=== PATIENT | female | born 1935 | race Caucasian/White ===

== ENCOUNTER 2022-12-20 19:26 | Emergency (ER) | payer MEDICARE, OTHER ==
[~2022-12-20] VITALS: Ht 167.6 cm; Wt 106.6 kg
[~2022-12-20 19:26] MED LIST: B-COMPLEX WIT400 MCG PO; CLARITIN10 M2 PO; FISH OIL 1,0001 EAC3 PO; FLONASE ALLERG9.9 ML NAS; GLUCOPHAGE500 MG PO; LOSARTAN POTAS100 MG PO; NORVASC10 MG PO; POTASSIUM99 MG PO; PREDNISONE10 MG PO; VITAMIN B122500 MC1 PO; VITAMIN D-32000 UNIT PO; ZINC50 M2 PO
--- OUTSIDE RECORDS SUMMARY | 2022-12-20 19:34 | XMS ---
PreManage Notification: INNA MADDOX Security Referral Nurse Events No recent Security Events currently on file CRITERIA MET - [facility] - 2 Visits in 30 Days [facility] PROVID[facility] PHONE: Unknown Magal[facility] has no Care Guidelines for this patient. EJessica VISIT COUNT (12 MO.) [address] TOTAL 4 NOTE: Visits indicate total known visits. ED/UCC VISIT TRACKING (12 MO.) 12/20/2022 19:27 [facility] [place] TYPE: Emergency COMPLAINT: - RT LOWER LEG SWELLING 12/16/2022 12:04 [facility] [place] TYPE: Emergency DIAGNOSES: - Cellulitis of right lower limb - Chronic kidney disease, unspecified - discoloration in right lrg [facility] 09[facility] DIAGNOSES: - Adverse effect of unspecified drugs, medicaments and biological substances, initial encounter - BILATERAL LEG PAIN AND SWELLING LUMP ON LEFT ARM 11/10/2022 11:19 [facility] [place] TYPE: Emergency DIAGNOSES: - Cellulitis of right lower limb - BILATERAL LEG SWELLING INPATIENT VISIT TRACKING (12 MO.) No inpatient visits to display in this time frame [email or web address]
[2022-12-20] MEDS ORDERED: DOXYCYCLINE MO100 MG PO (20:32)
[2022-12-20] MEDS ORDERED: AMOXICILLIN500 MG PO (20:32)
[2022-12-20] MEDS ORDERED: HYDROCHLOROTHIA25 MG PO (20:41)
[2022-12-20] MEDS ORDERED: METOPROLOL TART25 MG PO (20:41)
[2022-12-20] MEDS ORDERED: PRAVASTATIN SOD20 MG PO (20:42)
[2022-12-21 01:38] VITALS: BP 119/61
== END 2022-12-21 01:38 | disposition home or self-care (01) ==
LOC: ED 19:26
DX: L03.115 Cellulitis of right lower limb (principal); Z23 Encounter for immunization; E11.22 Type 2 diabetes mellitus with diabetic chronic kidney disease; I12.9 Hypertensive chronic kidney disease with stage 1 through stage 4 chronic kidney disease, or unspecified chronic kidney disease; N18.30 Chronic kidney disease, stage 3 unspecified; J45.909 Unspecified asthma, uncomplicated; E78.00 Pure hypercholesterolemia, unspecified; Z88.1 Allergy status to other antibiotic agents; Z88.2 Allergy status to sulfonamides; Z88.5 Allergy status to narcotic agent; Z79.899 Other long term (current) drug therapy; Z79.84 Long term (current) use of oral hypoglycemic drugs
CPT/HCPCS: 36415; 80053; 85025; 90471; 90714; 96365; 96366; 99283-25; J3370; J7060